=== PATIENT | female | born 1990 | race Caucasian/White ===

== ENCOUNTER 2022-01-01 07:52 | Emergency (ER) | payer OTHER, SELFPAY ==
[2022-01-01 08:15] VITALS: BP 104/58; PULSE 84; RESP 14; TEMP 36.5; O2SAT 98
--- NOTE | 2022-01-01 08:30 | ED.SKABFB ---
HPI - Skin/Abscess/Foreign Bdy General Chief complaint: Skin/Abscess/Foreign Body Stated complaint: Tail bone cyst painful Time Seen by Provider: 01/01/22 07:55 Source: patient and RN notes reviewed Limitations: no limitations History of Present Illness HPI narrative: firm tail-bone swelling x 2 days. no fever or drainage. complaint: abscess/boil Onset (ago): day(s) (2) Tetanus up to date: unsure Location: buttocks Severity: mild Severity scale (1-10): 6 Quality: aching and dull Pain Consistency: constant Relieving factors: none Exacerbating factors: palpation Associated symptoms: denies other symptoms Treatments prior to arrival: none Related Data Allergies Allergy/AdvReac Type Severity Reaction Status Date / Time No Known Allergies Allergy Verified 01/01/22 08:19 Review of Systems Review of Systems: All systems reviewed & are unremarkable except as noted in HPI and below PMFSH Past Medical History Medical History Cellulitis Exam Const: General: no acute distress Orientation/consciousness: patient oriented x3 HENMT: Head: normal to inspection Ears: external ears normal, TM's normal bilaterally and EAC's normal General nose exam: Normal external nose present and Normal nares present Face and sinus: sinuses nontender Mouth: Yes lip normal and Yes moist mucous membranes Eyes: Conjunctivae: conjunctivae normal Pupils: Equal, round and reactive pupils present EOM: EOMs intact bilaterally Neck: Neck: normal visual inspection and no lymphadenopathy Chest: Chest palpation & inspection: normal inspection of the chest Resp: Effort & Inspection: normal respiratory effort Auscultation: clear to auscultation bilaterally Cardio: Rate: regular rate Rhythm: regular rhythm GI: Auscultation: normal bowel sounds Other: left upper buttock, lateral to sacrum/coccyx firm tender swelling with no acute redness or drainage. : General: Yes bladder normal to palpation and Yes no CVA tenderness Back/Spine/Pelvis: Back: no CVA tenderness Skin: General skin exam: normal color Rashes: no rashes Neuro: General: patient oriented x3, moves all extremities, no meningeal signs, no focal motor deficits and CN's II-XI intact bilaterally Extrem: General: normal to inspection and no pedal edema Psych: Appearance: grossly normal and well kempt Mental Status: mental status grossly normal Affect: normal affect Thought content: Yes Normal thought content present Course Course Emergency Course: Pt was stable in the ED. less painful. Pt deferred the I and D and will return in 2 days. Reevaluation(s) Reevaluation #1: VSS Date: 01/01/22 Time: 08:16 Vital Signs Vital signs: Vital Signs Temperature 36.5 C 01/01/22 08:15 Pulse Rate 84 01/01/22 08:15 Respiratory Rate 14 01/01/22 08:15 Blood Pressure 104/58 L 01/01/22 08:15 Pulse Oximetry 98 01/01/22 08:15 Temperature 36.5 C 01/01/22 08:15 Pulse Rate 84 01/01/22 08:15 Respiratory Rate 14 01/01/22 08:15 Blood Pressure 104/58 L 01/01/22 08:15 Pulse Oximetry 98 01/01/22 08:15 MDM - Skin/Abscess/Foreign Bdy Differential Diagnosis Differential diagnosis: Likely abscess of skin or subcutaneous tissue and cellulitis Medical Records Attestation: I reviewed the patient's medical records. Critical Care Time Critical Care Time Critical Care Time: No Total Critical Care Time: 0 Discharge Plan Discharge Clinical Impression: Cyst near coccyx Cellulitis Qualifiers: Site of cellulitis: buttock Qualified Code(s): L03.317 - Cellulitis of buttock Patient Disposition: Home, Self-Care Condition: Stable Instructions: Antibiotic Form, Cellulitis (ED) Additional Instructions: Home. May RTC prn. PMD in 1-2 days. Rx below. Sitz baths. Off work x 2 days. For I and D in 2-3 days. Prescriptions: New sulfamethoxazole-trimethoprim [Bactrim DS] 800-160 mg tablet
[2022-01-01] MEDS: KETOROLAC (*BKC) 60 MG/2 ML VIAL IM (08:36)
[2022-01-01] MEDS: cefTRIAXone 1 GM VIAL IM (08:37)
[2022-01-01 08:44] VITALS: BP 115/62; PULSE 88; RESP 16; TEMP 36.5; O2SAT 97
== END 2022-01-01 08:53 | disposition home or self-care (01) ==
PROVIDERS: Emergency Provider Emergency Medicine
DX: L72.9 Follicular cyst of the skin and subcutaneous tissue, unspecified (principal); L03.317 Cellulitis of buttock
CPT/HCPCS: 96372; 99284; J0696; J1885